=== PATIENT | male | born 1975 | race Caucasian/White ===

== ENCOUNTER → 2023-01-25 | Outpatient (CLI) | payer BC ==
--- NOTE | 2023-01-25 08:56 | CT ---
EXAMINATION TYPE: CT abdomen pelvis w con DATE OF EXAM: 01/25/2023 COMPARISON: None. HISTORY: left testicular pain CT DLP: 2291 mGycm, Automated Exposure Control for Dose Reduction was Utilized. CONTRAST: CT scan of the abdomen and pelvis is performed with oral and with IV Contrast, patient injected with 70 mL of Isovue 300. FINDINGS: LUNG BASES: No significant abnormality is appreciated. LIVER/GB: No significant abnormality is appreciated. PANCREAS: No significant abnormality is seen. SPLEEN: No significant abnormality is seen. ADRENALS: No significant abnormality is seen. KIDNEYS: There is 3 mm nonobstructing calculus lower pole left kidney coronal image 64. There is symm etric cortical atrophy uptake and excretion without hydronephrosis seen bilaterally. No intraluminal calculus in the bladder is present. BOWEL: Oral contrast reaches level of the distal transverse colon. There is no suspicious small or la rge bowel dilatation. Normal appearing appendix from base of cecum is seen posteriorly. PROSTATE/SEMINAL VESICLES: Normal sized prostate. There are vasectomy clips in the superior scrotum. There are small bilateral scrotal fluid collection or hydroceles. Testicles are symmetric and normal in size. LYMPH NODES: No greater than 1cm abdominal or pelvic lymph nodes are appreciated. OSSEOUS STRUCTURES: There is vacuum disc phenomenon with mild disc space narrowing at the L5-S1 level . OTHER: No obvious groin hernia or adenopathy seen.. IMPRESSION: No significant acute finding is seen to account for patient's clinical symptoms of left- sided testicular pain. Consider scrotal ultrasound evaluation if has not been performed.
== END | disposition home or self-care (01) ==
LOC: RADCTMAIN 06:18
PROVIDERS: ATTEND Urology
DX: N50.89 Other specified disorders of the male genital organs (principal); N50.812 Left testicular pain
CPT/HCPCS: 74177; Q9967